=== PATIENT | female | born 1960 | race Caucasian/White ===

== ENCOUNTER → 2024-12-29 | Outpatient (CLI) | payer OTHER ==
[2024-12-29 13:29] VITALS: BP 133/80; PULSE 74; RESP 14; TEMP 98.2
--- NOTE | 2024-12-29 14:29 | P.HPOB ---
History of Present Illness H&P Date: 12/29/24 Chief Complaint: The patient is here for her routine gynecologic exam and ma mmogram. This is a 64-year-old with an LMP of 2010. Patient is here to establish with this office. She is status post BESSIE and BSO in 2010 and at that time ovarian cancer was found. She underwent chemotherapy. She was followed by Dr. Borrego at the [facility]. No longer sees Dr. Borrego. She previously had CA125 testing done regularly after her diagnosis, but has not done this recently. She recently moved back to [place] from [place]. She is without gynecologic complaints. Review of Systems The patient has lost 40 pounds over the last year. She has been trying to lose weight and is using Zepbound to help her lose weight. She denies respiratory, cardiac, or G.I. problems. 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 No History of STDs. History of Any Multi-Drug Resistant Organisms: None Reported Past Surgical History: Bariatric Surgery, Cholecystectomy, Heart Catheterization With Stent, Hysterectomy Additional Past Surgical History / Comment(s): GASTRIC SLEEVE. Colonoscopy(uncertain date, in [place]). BESSIE/BSO in 2010. Past Anesthesia/Blood Transfusion Reactions: No Reported Reaction Date of Last Stent Placement:: 11/23/2022 Past Psychological History: No Psychological Hx Reported Smoking Status: Former smoker Past Alcohol Use History: Occasional (4 drinks per week.) Additional Past Alcohol Use History / Comment(s): Quit smoking in 2010. Past Drug Use History: None Reported Additional History: She is . She lives with her boyfriend and is sexually active. 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 - Past Family History Mother Family Medical History: No Reported History Father Family Medical History: Diabetes Mellitus, Hypertension Additional Family Medical History / Comment(s): . Brother(s) Family Medical History: Diabetes Mellitus Medications and Allergies Home Medications Medication Instructions Recorded Confirmed Type Atorvastatin [Lipitor] 40 mg PO DAILY 12/29/24 12/29/24 History Cholecalciferol [Vitamin D3 (25 25 mcg PO DAILY 12/29/24 12/29/24 History Mcg = 1000 Iu)] Multivitamin [Multivitamins Adult 1 cap PO DAILY 12/29/24 12/29/24 History Gummies] Tirzepatide [Zepbound] 7.5 mg INJ WEEKLY 12/29/24 12/29/24 History hydroCHLOROthiazide [Hydrodiuril] 50 mg PO DAILY 12/29/24 12/29/24 History Allergies Allergy/AdvReac Type Severity Reaction Status Date / Time cephalexin [From Keflex] Allergy Unknown Unverified 12/29/24 13:18 Exam Vital Signs Temp Pulse Resp BP Pulse Ox 12/29/24 13:22 98.2 F 74 14 133/80 100 Intake and Output 12/28/24 12/29/24 12/29/24 22:59 06:59 14:59 Other: Weight 100.244 kg Height 5 feet 7 inches, weight 221 pounds, BMI 34.6. This is a well-developed well-nourished white female who is alert and oriented times 3 in no acute distress. HEENT: Within normal limits. NECK: Supple without mass or thyromegaly. CHEST AND LUNGS: Clear to auscultation. HEART: Regular rate and rhythm. BREASTS: Are without mass or discharge. AXILLARY EXAM: Negative for adenopathy. BACK: Negative for CVA tenderness. ABDOMEN: Soft, nontender, without palpable masses. PELVIC EXAM: External genitalia appears normal with mild atrophy. Vagina appears normal mild atrophy. There is no evidence of prolapse. Bimanual examination is negative for mass or tenderness. RECTAL EXAM: Rectovaginal exam is negative for mass or tenderness and is negative for occult blood. EXTREMITIES: Nontender. IMPRESSION: 1. 64-year-old menopausal female status post BESSIE/BSO for ovarian cancer in 2010. She also underwent chemotherapy at that time. No evidence of recurrence on exam today. PLAN: 1. Pap smears have been discontinued. 2. Self breast awareness was discussed with the patient. We have also discussed symptoms associated with inflammatory breast cancer. 3. Screening mammogram will be done today. 4. Because of her history of ovarian cancer, we will resume CA125 blood testing yearly. She is this is not a perfect test and does not ovarian cancers and elevations in CA125 testing. She also understands that elevated CA125 blood testing does not always indicate cancer. The order slip was given to patient for this. 5. Osteoporosis prevention was discussed. I have stressed the importance of adequate calcium, vitamin D and regular exercise. Recommended amounts of calcium and vitamin D were also discussed. Baseline bone density testing is recommended and the order slip was given to the patient for this. 6. She will try to determine when her last colonoscopy was done in [place] she will contact her PCP in [place] for this information. She will have colonoscopy testing arranged through her PCP as needed. 7. She was advised to return in one year for her annual well woman exam.
--- NOTE | 2024-12-30 09:26 | MM ---
Reason for Exam: Screening (asymptomatic). Last mammogram was performed 1 year(s) and 2 month(s) ago. Patient History: Menarche at age 13. First Full-Term at age 19. Left ovary removed at age 51. Right ovary removed at age 51. Hysterectomy at age 51. Postmenopausal. Ovarian cancer, age 51. Cyst Aspiration on the Right side. Risk Values: Nisreen 5 year model risk: 1.1%. NCI Lifetime model risk: 4.9%. Prior Study Comparison: 01/05/2013 Bilateral Screening Mammogram, [facility]. 01/11/2014 Bilateral Screening Mammogram, [facility]. 04/01/2015 Bilateral Screening Mammogram, [facility]. 10/25/2021 Bilateral Screening Mammogram, [facility]. 10/29/2022 Bilateral Screening Mammogram, [facility]. 10/28/2023 Bilateral Screening Mammogram, [facility]. Tissue Density: The breasts are almost entirely fatty. Findings: Analyzed By CAD. Right breast: There is no suspicious group of microcalcifications or new suspicious mass. Stable intramammary lymph node. Left breast: There is no suspicious group of microcalcifications or new suspicious mass. Overall Assessment: Benign, BI-RAD 2 Management: Screening Mammogram of both breasts in [address] [facility] will attempt to contact patient to return for supplemental views and ultrasound if indicated. Patient should continue monthly self-breast exams. A clinical breast exam by your physician is recommended on an annual basis. This exam should not preclude additional follow-up of suspicious palpable abnormalities. Note on Nisreen scores and lifetime risk: 1. A Nisreen score greater than 3% is considered moderate risk. If this is the case, consider specialist referral to assess eligibility for a risk reducing agent. 2. If overall lifetime risk for the development of breast cancer is 20% or higher, the patient may qualify for future screening with alternating mammogram and breast MRI. [facility], , 12/30/2024 9:23 AM. Electronically signed and approved by: Riccardo Herrera DO
--- NOTE | 2025-01-05 08:47 | P.PN ---
Progress Note - Text Progress Note Date: 01/05/25 OUTPATIENT FOLLOW-UP NOTE TEST(S)/RESULTS: Test results from 12/29/2024 include benign mammogram and normal CA125 test. METHOD OF NOTIFICATION: Patient was notified by phone on 01/05/2025. PATIENT COMMENTS: She will be scheduling her bone density test as recommended. DIAGNOSIS: Benign mammogram and normal CA125 test. DISCUSSION: PLAN: Bone Density testing as above.
== END ==
LOC: WWCWWP 13:01
PROVIDERS: ATTEND Obstetrics & Gynecology
DX: Z12.31 Encounter for screening mammogram for malignant neoplasm of breast (principal); N95.0 Postmenopausal bleeding; Z90.710 Acquired absence of both cervix and uterus; Z90.722 Acquired absence of ovaries, bilateral; Z85.43 Personal history of malignant neoplasm of ovary; Z92.21 Personal history of antineoplastic chemotherapy; Z88.1 Allergy status to other antibiotic agents
CPT/HCPCS: 77067; 86304

== ENCOUNTER → 2025-01-15 | Outpatient (CLI) | payer OTHER ==
--- NOTE | 2025-01-15 09:52 | BD ---
EXAMINATION TYPE: Axial Bone Density DATE OF EXAM: 01/15/2025 CLINICAL HISTORY: 64 years old Female. ICD-10 CODE: Z78.0 ASYMPTOMATIC MENOPAUSAL STATE , Additional History: Height: 65 in Weight: 216 lbs FRAX RISK QUESTIONS: History of Fracture in Adulthood: rt foot fx age 60 RISK FACTORS HISTORY OF: History of Wrist Fracture: rt wrist fx age 7 EXAM MEASUREMENTS: Bone mineral densitometry was performed using the [employer] System. Bone mineral density as measured about the Lumbar spine is: ----- L1-L4(G/cm2): 1.362 T Score Values are as follows: ----- L1: 0.4 ----- L2: 0.5 ----- L3: 2.2 ----- L4: 2.4 ----- L1-L4: 1.5 Z Score Values are as follows: ----- L1: 0.8 ----- L2: 0.9 ----- L3: 2.6 ----- L4: 2.7 ----- L1-L4: 1.9 Bone mineral density baseline Bone mineral density about the R hip (g/cm2): 1.086 Bone mineral density about the L hip (g/cm2): 1.118 T Score values are as follows: -----R Neck: -0.2 -----L Neck: 0.1 -----R Total: 0.6 -----L Total: 0.9 Z Score values are as follows: -----R Neck: 0.5 -----L Neck: 0.8 -----R Total: 1.0 -----L Total: 1.2 Bone mineral density baseline FRAX%s: The graph provided illustrates a 10.5% chance for a major osteoporotic fx and a 0.3% chance f or the hips probability for fx in 10 years time. IMPRESSION: Normal (Values between +1 and -1 indicate normal bone mass). Consider repeating this study in 5 year s or sooner if there is some new clinical indication. NOTE: T-SCORE=SD OF THE YOUNG ADULT MEAN. [facility], , 01/15/2025 9:50 AM
== END | disposition home or self-care (01) ==
LOC: RADBDWWP 08:56
PROVIDERS: ATTEND Obstetrics & Gynecology
DX: Z78.0 Asymptomatic menopausal state (principal)
CPT/HCPCS: 77080

== ENCOUNTER 2025-06-04 07:21 | Day surgery (SDC) | payer OTHER ==
[2025-06-01 16:09] VITALS: BMI 32.2
[2025-06-04] MEDS ORDERED: ALPRAZolam 0.5 MG TAB PO PRN (07:55)
[2025-06-04] MEDS ORDERED: NITROGLYCERIN SL TABS 0.4 MG TAB SUBLINGUAL PRN (07:55)
[2025-06-04] MEDS ORDERED: ALPRAZolam 0.25 MG TAB PO PRN (07:55)
[2025-06-04] MEDS: IV FLUID CONTINUATION 1,000 ML IV ONE (07:56)
[2025-06-04] MEDS: SODIUM CHLORIDE 0.9% 1,000 ML in EMPTY BAG 1 BAG IV SCH (08:09)
[2025-06-04] MEDS: ASPIRIN 325 MG TAB PO STA (08:09)
[2025-06-04 08:30] VITALS: RESP 16; TEMP 97.6
[2025-06-04 08:58] LABS: African American GFR (CKD) >90 (>60 ml/min/1.73 sqM); Anion Gap 7 mmol/L; Blood Urea Nitrogen 13 mg/dL (7-17); Calcium 9.2 mg/dL (8.4-10.2); Carbon Dioxide 28 mmol/L (22-30); Chloride 103 mmol/L (98-107); Glucose 76 mg/dL (74-99); Non-African American GFR(CKD) >90 (>60 ml/min/1.73 sqM); Potassium 3.4 mmol/L (3.5-5.1); Sodium 138 mmol/L (137-145)
[2025-06-04] MEDS: fentaNYL (PF) 50 MCG/1 ML VIAL IVP ONE (09:29)
[2025-06-04] MEDS: LIDOCAINE 1% INJ 10MG/ML (20 ML MDV) SQ ONE (09:30)
[2025-06-04] MEDS: MIDAZOLAM 2 MG/2 ML VIAL IVP ONE (09:36)
[2025-06-04] MEDS: HEPARIN SODIUM,PORCINE 10,000 UNIT in SODIUM CHLORIDE 0.9% 1,000 ML IRRIGATION PRN (09:44)
[2025-06-04] MEDS: HEPARIN SODIUM 1,000 UN/ML (10ML VL) IVP ONE (09:45)
[2025-06-04] MEDS: HEPARIN SODIUM,PORCINE (1 ML) 2,500 UNIT in SODIUM CHLORIDE 0.9% 250 ML IRRIGATION PRN (09:45)
[2025-06-04] MEDS: IOPAMIDOL-370 100ML BTL INJ ONE (09:53)
[2025-06-04] MEDS: SODIUM CHLORIDE 0.9% 1,000 ML IV SCH (10:04)
[2025-06-04] MEDS ORDERED: RX INFO: IV CONTRAST WAS GIVEN 1 EACH MISC MISCELLANE PRN (10:09)
--- NOTE | 2025-06-04 10:17 | P.CARDCATH ---
Date of Procedure: 06/04/25 Description of Procedure: Cardiac Catheterization: The patient is a 65-year-old female with history of hypertension and hyperlipidemia status post RCA stenting in November 2022 in [place] who has been complaining of episodes of chest discomfort and had evidence of stress-induced ischemia involving the inferior wall. Recommendations were made regarding cardiac catheterization, the risks and the complications were discussed with the patient who is in full understanding and agreement. Procedure Description: Patient was brought to senior label specialist in fasting semi-sedated state after receiving Fentanyl and Benadryl achieiving moderate conscious sedated state. Using Xylocaine Anesthesia and modified Seldinger technique, a 6-Ukrainian sheath was introduced in the right radial artery . Subsequently, selective coronary angiography was performed using a 5-Ukrainian 3.5 bend Donavan catheter. Multiple views of the coronary artery including hemiaxial views were obtained. The 5 Ukrainian pigtail catheter was used to cross the aortic valve and LVEDP was calculated. Following that, catheter and sheath were removed. Hemostasis was obtained with deployment of vascular band . There was no immediate complication. Patient was returned to room in stable condition. Of note, the patient received a total of 5000 units of intravenous heparin as well as intra-arterial verapamil. Findings: Fluoroscopy: Severe calcification of the LAD in the RCA was noted Left main: This is a large size vessel, bifurcating into LAD and left circumflex, the distal left main has 20% plaque. LAD: This is a large size vessel, reaching to the apex with a wraparound apex segment giving rise to a proximal diagonal branch the proximal LAD is calcified, has a 40 to 50% plaque with no high-grade stenosis Left circumflex: This is a large nondominant vessel, giving rise to 2 obtuse marginal branch. The left circumflex has mild intimal disease proximally with no high-grade stenosis RCA: This is a large dominant vessel, bifurcating into PDA and PLV. The stented segment in the mid RCA is patent. There is mild diffuse disease throughout the RCA of 20% with no high-grade stenosis Left Ventriculogram: Not performed Hemodynamics: There was no gradient across the aortic valve, LVEDP was 16-20 mmHg Conclusion: 1. Calcified coronary arteries 2. Patent stent in the RCA with mild intimal disease in the rest of the vessel 3. Mild distal left main disease 4. Moderate disease in the proximal LAD 5. Mild left circumflex intimal disease Recommendations: In view of the finding I have recommended to continue medical therapy with the aggressive coronary risks modifications that have been initiated. The findings and the recommendations were discussed with the patient and the family and they were in full understanding and agreement. Duration of sedation is 26 minutes.
[2025-06-04 13:14] VITALS: BP 98/59; PULSE 63
[2025-06-05] MEDS ORDERED: ATORVASTATIN 40 MG TAB PO SCH (09:00)
[2025-06-05] MEDS ORDERED: ASPIRIN 81 MG PO SCH (09:00)
== END 2025-06-04 14:03 | disposition home or self-care (01) ==
LOC: CATHCVL 07:21
PROVIDERS: ATTEND Internal Medicine Interventional Cardiology
DX: I25.10 Atherosclerotic heart disease of native coronary artery without angina pectoris (principal); E78.2 Mixed hyperlipidemia; I10 Essential (primary) hypertension; Z95.5 Presence of coronary angioplasty implant and graft; Z88.1 Allergy status to other antibiotic agents; Z88.2 Allergy status to sulfonamides; Z88.8 Allergy status to other drugs, medicaments and biological substances; Z79.02 Long term (current) use of antithrombotics/antiplatelets; Z79.82 Long term (current) use of aspirin; Z79.899 Other long term (current) drug therapy
CPT/HCPCS: 93458; 80048; 99152; 99153; C1769 ×2; C1894; J2250; J1644 ×3; J2003; Q9967; J3010